=== PATIENT | male | born 1955 | race Caucasian/White ===

== ENCOUNTER 2017-09-10 08:22 | Day surgery (SDC) | payer BC ==
[~2017-09-10 08:22] MED LIST: Lactated Ringers 1,000 ML IV SCH
--- NOTE | 2017-09-10 09:39 | PCM.PREANE ---
Preanesthetic Assessment - Anesthesia/Transfusion/Family Hx Anesthesia History: Prior Anesthesia Without Reaction Family History of Anesthesia Reaction: No Transfusion History: No Prior Transfusion(s) Intubation History: Unknown - Review of Systems General: No Symptoms Pulmonary: No Symptoms Cardiovascular: No Symptoms Gastrointestinal: Other (unexplained weight loss) Neurological: No Symptoms Other: Reports: None - Physical Assessment NPO Status Date: 09/09/17 NPO Status Time: 21:00 O2 Sat by Pulse Oximetry: 93 Respiratory Rate: 16 Vital Signs: Last Vital Signs Temp 36.6 C 09/10/17 08:45 Pulse 58 L 09/10/17 08:45 Resp 16 09/10/17 08:45 BP 134/83 09/10/17 08:45 Pulse Ox 93 L 09/10/17 08:45 Height: 1.7 m Weight: 67.132 kg ASA Class: 2 Mental Status: Alert & Oriented x3 Airway Class: Mallampati = 2 Dentition: Reports: Missing Tooth/Teeth (few upper and lower teeth) Thyro-Mental Finger Breadths: 3 Mouth Opening Finger Breadths: 2 ROM/Head Extension: Limited/Partial Lungs: Clear to Auscultation, Normal Respiratory Effort Cardiovascular: Regular Rate, Regular Rhythm - Allergies Allergies/Adverse Reactions: Allergies Allergy/AdvReac Type Severity Reaction Status Date / Time latex Allergy passed out Verified 09/07/17 13:23 and rash - Blood Blood Available: No - Anesthesia Plan Pre-Op Medication Ordered: None - Acknowledgements Anesthesia Type Planned: MAC Pt an Appropriate Candidate for the Planned Anesthesia: Yes Alternatives and Risks of Anesthesia Discussed w Pt/Guardian: Yes Pt/Guardian Understands and Agrees with Anesthesia Plan: Yes PreAnesthesia Questionnaire HEENT History: Reports: Other (See Below) Other HEENT History: wears glasses Cardiovascular History: Reports: High Cholesterol (borderline, controlled by diet) Gastrointestinal History: Reports: Colon Polyp Musculoskeletal History: Reports: Fracture, Neck Pain, Chronic, Other (See Below ) Other Musculoskeletal History: Neck pain, occasional joint pain, hx fx collarbone and ankle Neurological History: Reports: Neuropathy, Peripheral Psychiatric History: Reports: Anxiety, Depression Endocrine/Metabolic History: Reports: None Dermatologic History: Reports: Other (See Below) Other Dermatologic History: morphea scleroderma - Past Surgical History Head Surgeries/Procedures: Reports: None GI Surgical History: Reports: Appendectomy, Colonoscopy (1 1/2 years ago), Hernia, Inguinal Musculoskeletal Surgical History: Reports: Arthroscopic Knee - SUBSTANCE USE Smoking Status *Q: Never Smoker Tobacco Use Within Last Twelve Months: Snuff/Dip (1 can per week) Recreational Drug Use History: No - HOME MEDS Home Medications: Home Meds Ascorbate Calcium [Vitamin C] 1 tab PO BID 03/19/16 [History] Aspirin [[place] Aspirin] 81 mg PO DAILY 03/19/16 [History] Cholecalciferol (Vitamin D3) [Vitamin D3] 1 tab PO DAILY 03/19/16 [History] Saw/Vit E/Sod [place]/Lyc/Beta/Pyg [Prostate Health Caplet] 1 tab PO BID 03/19/16 [ History] - CURRENT (IN HOUSE) MEDS Current Meds: Current Medications Lactated Ringer's (Ringers, Lactated) 1,000 mls @ 125 mls/hr IV ASDIRECTED [facility], [facility] Last Admin: 09/10/17 08:50 Dose: 125 mls/hr
[2017-09-10] MEDS ORDERED: fentaNYL 100 MCG/2 ML SDV ONE (10:29)
[2017-09-10] MEDS ORDERED: Lidocaine 2% 5 ML SDV ONE (10:29)
[2017-09-10] MEDS ORDERED: Propofol 200 MG/20 ML SDV ONE (10:29)
[2017-09-10] MEDS ORDERED: Midazolam 1 MG/ML 2 ML SDV ONE (10:30)
--- NOTE | 2017-09-10 11:19 | PCM.OPNOTE ---
- General Post-Op/Procedure Note Date of Surgery/Procedure: 09/10/17 Operative Procedure(s): egd w bx and colonoscopy w bx Findings: see dict [id number] Pre Op Diagnosis: wt loss and abd pain Post-Op Diagnosis: Same Anesthesia Technique: Moderate Sedation Primary Surgeon: Jef Kaye Pathology: egd bx colon bx at 40 cm Complications: None Condition: Good
[2017-09-10 11:54] VITALS: BP 143/79
--- NOTE | 2017-09-10 12:28 | PCM48HPAN ---
Post Anesthesia Note - EVALUATION WITHIN 48HRS OF ANESTHETIC Vital Signs in Normal Range: Yes Patient Participated in Evaluation: Yes Respiratory Function Stable: Yes Airway Patent: Yes Cardiovascular Function Stable: Yes Hydration Status Stable: Yes Pain Control Satisfactory: Yes Nausea and Vomiting Control Satisfactory: Yes Mental Status Recovered: Yes Resp Rate: 14
--- NOTE | 2017-09-10 12:29 | PCM.POSTAN ---
POST ANESTHESIA ASSESSMENT - MENTAL STATUS Mental Status: Alert, Oriented - RESPIRATORY Respiratory Status: Respiratory Rate WNL, Airway Patent, O2 Saturation Stable - CARDIOVASCULAR CV Status: Pulse Rate WNL, Blood Pressure Stable - GASTROINTESTINAL GI Status: No Symptoms - POST OP HYDRATION Hydration Status: Adequate & Stable
--- NOTE | 2017-09-10 13:48 | OR ---
SURGEON: Jef Kaye MD DATE OF PROCEDURE: 09/10/2017 PREOPERATIVE DIAGNOSES: Weight loss and abdominal pain. POSTOPERATIVE DIAGNOSES: Weight loss and abdominal pain. PROCEDURES PERFORMED: Esophagogastroduodenoscopy with biopsy, and colonoscopy with biopsy. PROCEDURE IN DETAIL: EGD: The patient was taken to the endoscopy room, and with the [employer], Diprivan was administered. A well-lubricated EGD scope was gently inserted through the oropharynx, down the esophagus, passing through the gastroesophageal junction, into the stomach. The mucosa was examined upon the passage. Any etiology will be noted. Once in the stomach, we continued to advance to the distal antrum, passed through the pylorus into the second portion of the duodenum. Again, the mucosa was examined for any abnormality and etiology. The scope was then retrieved back to the stomach and then retroflexed to look at the fundus of the stomach. If a biopsy was indicated, we will biopsy the antrum, body, and gastroesophageal junction. The air will be sucked out while the scope is retrieved to reduce the patient's discomfort. The patient tolerated the procedure well. There were no intraoperative complications. Dr. Kaye was present through the whole procedure. Prior to surgery, a time-out had been called, the patient identified, procedure identified and antibiotic administered. Colonoscopy procedure: The patient was taken to the endoscopy room. A time out was called, patient identified, and procedure identified. Diprivan was then administrated. Patient went from awake to sleep, hearing doctor talking or door closing is normal. Perineum inspection and digital examination were then performed. A well- lubricated colonoscope was gently inserted through the rectum, advanced past the rectosigmoid junction, the descending colon, splenic flexure, transverse colon, hepatic flexure, ascending colon, arrived to the cecum. Cecum was identified as dictated in the finding. Then the scope was carefully withdrawn while attention was paid to the mucosal surface for any abnormality. Air will be sucked out during the scope withdrawal. At the rectum, retroflexed to examine any rectal diseases, fistula or hemorrhoids. During mucosal examination, biopsy performed. Patient tolerated procedure well. There were no intraoperative complications, and Dr. Kaye was present throughtout the whole procedure. FINDINGS: EGD findings: 1. The patient is easily sedated with [employer] and Diprivan. The patient is soundly snoring. 2. Oropharynx is grossly normal in appearance and proximal esophagus is free of disease. No stricture or inflammation, and GE junction at 40 shows mild- to-moderate salmon-colored change consistent with acid reflux. Stomach rugae is normal in appearance. Antrum has a couple of spot of blood, very little and is not blood clot, there is no ulcer, and some mild inflammation. Duodenum was grossly normal in appearance, retrieved back to the stomach. Retroflexed to look at the fundus of stomach. There is no hiatal hernia or other etiology. Biopsy of antrum, body, GE junction at 40 and sucked out the air while scope pulling out. Colonoscopy findings: 1. The patient is easily sedated with [employer] and Diprivan. The patient is soundly snoring. 2. Bowel prep is average to above average with liquid stool. 3. The patient's colon is rather straight forward. Cecum indicated by ileocecal fold, one-to-one indentation, light emittance, and appendiceal orifice. Mucosa examined upon scope pulling out. The patient has mild diverticulosis on the left colon. No signs or symptoms of diverticulitis and at around 40 cm when the scope pulling out, there is some inflammation. Biopsy done. The patient also had internal hemorrhoids. No external hemorrhoids. The patient would benefit from repeat colonoscopy in 10 years from today or if clinically indicated otherwise. The patient does not have polyp, mass, growth, ulceration, bleeding, AV malformation, none of those. BIANCA SCHMIDT /[id number] [place]
== END 2017-09-10 11:58 | disposition home or self-care (01) ==
LOC: MW.SDS 08:22
PROVIDERS: ATTEND Surgery
DX: R63.4 Abnormal weight loss (principal); R10.9 Unspecified abdominal pain; K20.9 Esophagitis, unspecified; K57.30 Diverticulosis of large intestine without perforation or abscess without bleeding; K64.8 Other hemorrhoids; F41.9 Anxiety disorder, unspecified; F32.9 Major depressive disorder, single episode, unspecified; E78.5 Hyperlipidemia, unspecified; Z87.891 Personal history of nicotine dependence; Z79.82 Long term (current) use of aspirin; Z79.899 Other long term (current) drug therapy; Z91.040 Latex allergy status
CPT/HCPCS: 43239; 45380; 88305; 88312; J2250; J7120; J2704; J3010